=== PATIENT | male | born 1950 | race Caucasian/White ===

== ENCOUNTER → 2020-06-21 09:27 | Outpatient (CLI) | payer MEDICARE, BC, SELFPAY ==
--- NOTE | ~2020-06-21 | XR_ITS ---
XR abdomen/kub 1V 06/21/2020 09:59 Indication: Renal stones. Procedure: KUB Comparison: Comparison to multiple prior studies sequentially, with oldest reviewed study dated 02/2011 Findings: there are stones in the lower pole of the left kidney. Bowel content obscures the right kid sadia limiting evaluation for subtle stones. Bowel pattern nonobstructive. There are vascular calcifica tions in the pelvis. Mild-moderate lower thoracic and lumbar spondylosis.. Impression: 1: Left nephrolithiasis unchanged. Reviewed, dictated and finalized at location A. Impression: 1: Left nephrolithiasis unchanged.
== END ==
PROVIDERS: Visit Provider Nurse Practitioner Adult Health
DX: N20.0 Calculus of kidney (principal)
CPT/HCPCS: 74018

== ENCOUNTER 2020-11-18 16:52 | Emergency (ER) | payer MEDICARE, BC, SELFPAY ==
--- NOTE | ~2020-11-18 | XR_ITS ---
EXAMINATION: XR abdomen/kub 1V INDICATION: Left flank pain TECHNIQUE: Supine views of the abdomen were obtained on 2 radiographs. COMPARISON: 06/21/2020 FINDINGS: A 7 mm calcification projects near the left L4 transverse process in the expected location of the left mid ureter. Calcified atherosclerosis is noted. The bowel gas pattern is normal. There is moderate lumbar spondylosis. IMPRESSION: 1. 7 mm calcification projecting in the expected location of the left mid ureter. Reviewed, dictated and finalized at location A. J2EE APPLICATION DEVELOPER IMPRESSION: 1. 7 mm calcification projecting in the expected location of the left mid urete r.
--- NOTE | ~2020-11-18 | CT_ITS ---
EXAMINATION: CT abdomen pelvis wo con DATE: 11/18/2020 21:34 INDICATION: Left flank pain TECHNIQUE: Computed tomography (CT) of the abdomen and pelvis was performed without intravenous contr ast. The dose-length product (DLP) was 1588.17 mGy-cm. Automated exposure control and iterative recon struction technique were employed. COMPARISON: 10/25/2018 FINDINGS: Minimal dependent atelectasis is present in the lung bases. The heart size is normal. Stabl e nodules in the visualized lower lobes are consistent with old granulomatous disease. Calcified ingrid nary artery atherosclerosis is noted. The liver, spleen, pancreas, gallbladder, and adrenal glands ar e normal. There is a 6 mm stone of the left mid ureter which causes mild left hydronephrosis. There a re two nonobstructing stones of the left kidney which measure 3 mm and 1 mm. There are four nonobstru cting stones of the right kidney which measure up to 3 mm. No stones are identified in the right uret er or the bladder. There is calcified atherosclerosis of the aorta and many of the other arteries. No pathologically enlarged abdominal or pelvic lymph nodes are identified. There is no free intraperito sebastian gas or evidence of bowel obstruction. Healed left-sided rib fractures are noted. There is modera te lumbar spondylosis. IMPRESSION: 1. 6 mm stone of the left mid ureter causing mild left hydronephrosis. 2. Bilateral nonobstructing nephrolithiasis. Reviewed, dictated and finalized at location A. TRAPPER
[2020-11-18 18:25] VITALS: BP 132/68; PULSE 86; RESP 16; TEMP 36.1; O2SAT 98
[2020-11-18 18:41] LABS: Basophils Absolute Auto 0.1 K/mm3 (0.0-0.1); Basophils Percent Auto 0.6 % (0.2-1.2); Eosinophils Absolute Auto 0.2 K/mm3 (0-0.3); Eosinophils Percent Auto 1.5 % (0-4.4); Hematocrit 43.3 % (42.0-52.0); Hemoglobin 14.2 g/dL (14.0-18.0); Immature Granulocyte Absolute 0.04 K/mm3 (0.00-0.031); Immature Granulocyte Percent A 0.3 % (0-0.5); Lymphocytes Absolute Auto 1.78 K/mm3 (0.9-3.2); Lymphocytes Percent Auto 14.5 % (18.3-44.2); Mean Corpuscular HGB Conc 32.8 g/dl (32-36); Mean Corpuscular Hemoglobin 30.8 pg (26-34); Mean Corpuscular Volume 93.9 fl (80-100); Mean Platelet Volume 10.6 fl (7.4-10.4); Monocytes Absolute Auto 0.6 K/mm3 (0.1-0.6); Monocytes Percent Auto 4.8 % (2.6-8.5); Neutrophils Absolute Auto 9.6 K/mm3 (1.3-6.7); Neutrophils Percent Auto 78.3 % (45.5-73.1); Platelet Count Result 217 k/mm3 (150-375); Red Blood Count 4.61 M/mm3 (4.6-6.20); Red Cell Distribution Width 13.2 % (11.5-14.5); White Blood Count 12.3 K/mm3 (4.5-10.0)
[2020-11-18 18:54] LABS: Anion Gap 8 mmol/L (8-16); Blood Urea Nitrogen 15 mg/dL (9-20); Calcium 9.4 mg/dL (8.4-10.2); Carbon Dioxide 26 mmol/L (22-30); Chloride 103 mmol/L (98-107); Estimated CRCL calculation 70 ml/min; Estimated Glomerular Filt Rate 60; Glucose 131 mg/dL (75-110); Potassium 4.1 mmol/L (3.4-5.0); Sodium 137 mmol/L (137-145)
[2020-11-18 19:00] LABS: Add Urine Microscopic? YES; Appearance Urine Cloudy (Clear); Bilirubin Urine Negative (Negative); Blood Urine 3+ (Negative); Color Urine Yellow (Yellow); Glucose Urine UA Negative (Negative); Ketones Urine Negative (Negative); Leukocyte Esterase Ur Negative LEU/UL (Negative); Mucus Urine Moderate /lpf; Nitrate Urine Negative (Negative); Protein Urine 2+ mg/dL (Negative); RBC Urine >75 /hpf (0-2); Specific Grav Ur 1.031 (1.001-1.035); Squamous Epithelial Cell Urine Occasional /hpf (Few); Urobilinogen Urine Negative mg/dL (<2.0); WBC Urine 0-3 /hpf
[2020-11-18 20:23] VITALS: BP 128/77; PULSE 96; RESP 17; O2SAT 98
--- NOTE | 2020-11-18 20:28 | ED.MALEGU ---
HPI - Male Genitourinary General Chief complaint: Back Pain/Injury Stated complaint: L FLANK PAIN Time Seen by Provider: 11/18/20 20:15 Source: patient and family Mode of arrival: ambulatory Limitations: no limitations History of Present Illness HPI Narrative: 70-year-old male Past history of kidney stones and followed here by Dr. Ortega He was getting ready to eat a delicious roast for dinner this evening when he was suddenly seized by severe sharp pain in his left flank which was accompanied by nausea and vomiting x2 The pain rather quickly migrated from the back/flank area towards the groin and then resolved He reports currently being essentially pain-free This is not been his experience in the past with kidney stones as he is often had to have them removed He is not having a fever, he does not have gross hematuria although his urine did look dark, and reports no other symptoms Onset (ago): hour(s) Location: left flank Radiation: left inguinal region Severity: severe Quality: sharp Related Data Home Medications Medication Instructions Recorded Confirmed Ca shnm-H0-empd-hukgm-efkv-ini 600 tablet PO 11/19/20 Ozempic 0.5 mg SUBCUT WEEKLY 11/19/20 11/19/20 aspirin 81 mg PO DAILY 11/19/20 11/19/20 atorvastatin [Lipitor] 40 mg PO DAILY 11/19/20 11/19/20 clopidogrel [Plavix] 75 mg PO DAILY 11/19/20 11/19/20 coenzyme Y55-cxzermu E 100 cap PO 11/19/20 cyclobenzaprine 10 mg PO TID PRN 11/19/20 11/19/20 finasteride 5 mg PO DAILY 11/19/20 11/19/20 gabapentin 300 mg PO TID 11/19/20 11/19/20 metformin 500 mg PO BID 11/19/20 11/19/20 metoprolol succinate 50 mg PO DAILY 11/19/20 11/19/20 omega 7-rue-irf-fish oil [Fish Oil] 1 cap PO DAILY 11/19/20 11/19/20 pantoprazole 40 mg PO QAM 11/19/20 11/19/20 Allergies Allergy/AdvReac Type Severity Reaction Status Date / Time No Known Allergies Allergy Verified 11/19/20 13:43 Review of Systems Review of Systems: All systems reviewed & are unremarkable except as noted in HPI and below Constitutional: Constitutional: Denies chills, Denies fatigue, Denies fever(s), Denies headache(s) and Denies weakness Eyes: Eyes: Reports no additional eye complaints and Denies change in vision ENT: Denies headache(s), Denies epistaxis, Denies nasal congestion and Denies sore throat Cardiovascular: Cardiovascular: Denies chest pain, Denies leg edema, Denies palpitations and Denies dyspnea Respiratory: Respiratory: Denies cough, Denies dyspnea and Denies wheezing Gastrointestinal: Gastrointestinal: Reports abdominal pain, Denies diarrhea, Denies nausea and Denies vomiting Genitourinary: Genitourinary: Reports as per HPI, Denies hematuria, Denies dysuria and Denies urinary frequency Musculoskeletal: Musculoskeletal: Denies deformity, Denies arthralgias, Denies joint swelling, Denies muscle weakness and Denies numbness Integumentary/Breasts: Skin/Breast: Denies rash and Denies wounds Neurologic: Denies headache(s), Denies focal weakness, Denies numbness and Denies weakness Psychiatric: Psychiatric: Reports no additional psychiatric complaints Endocrine: Endocrine: Denies fatigue and Denies palpitations Hematologic/Lymphatic: Hematologic/Lymphatic: Denies easy bleeding and Denies easy bruising Allergic/Immunologic: Allergic/Immunologic: Denies wheezing PMFSH Past Medical History Medical History Back pain CAD (coronary artery disease) Chronic GERD Diabetes HTN (hypertension) Hx of myocardial infarction 2006 Hypercholesterolemia Morbid obesity with BMI of 40.0-44.9, adult CLIFF on CPAP Osteoarthritis Surgical History Surgical History History of coronary artery stent placement 2 stents, 2006 Social History Social History Smoking packs per day: 1.5 Smoking cigarettes per day: 30.0 Years smoked: 34 Smoking pack
--- NOTE | 2020-11-18 20:35 | PC.NURSE ---
Pt. to CT
[2020-11-18] MEDS: ONDANSETRON INJ 4 MG/2 ML VIAL IV PUSH (21:02)
[2020-11-18] MEDS: IBUPROFEN 400 MG TABLET 800 MG PO (21:02)
[2020-11-18] MEDS: TAMSULOSIN HCL 0.4 MG CAPSULE PO (21:03)
== END 2020-11-18 21:40 | disposition home or self-care (01) ==
PROVIDERS: Emergency Provider Emergency Medicine; Family Provider Urology
DX: N23 Unspecified renal colic (principal); Z87.442 Personal history of urinary calculi
CPT/HCPCS: 36415; 74018; 74176; 80048; 81001; 85025; 96374; 99284; A9270; J2405

== ENCOUNTER 2020-11-19 12:54 | Day surgery (SDC) | payer MEDICARE, BC, SELFPAY ==
--- NOTE | ~2020-11-19 | XR_ITS ---
EXAMINATION: XR stent kub - surgery INDICATION: Left ureteral stone TECHNIQUE: Six intraoperative fluoroscopic images are submitted for review. Total fluoroscopic time i s 23.0 seconds COMPARISON: CT from yesterday FINDINGS: Fluoroscopic images demonstrate mild left hydroureteronephrosis. A left internal ureteral s tent is placed in expected position. Please refer to procedure note for full details. IMPRESSION: 1. Left internal ureteral stent in expected position. Please refer to procedure note for full details . Reviewed, dictated and finalized at location A. TRIMMER IMPRESSION: 1. Left internal ureteral stent in expected position. Please refer to procedure note for full details.
[2020-11-19 11:05] VITALS: BMI 42.3
--- NOTE | 2020-11-19 13:50 | ECG_ITS ---
Measurements Intervals [place] Rate: 81 P: 35 NE: 166 QRS: -11 QRSD: 95 T: 14 QT: 371 QTc: 433 Interpretive Statements SINUS RHYTHM EARLY PRECORDIAL R/S TRANSITION BORDERLINE T WAVE ABNORMALITY- INFERIOR LEADS BASELINE WANDER- I, III BORDERLINE ECG Electronically Signed On 11-19-2020 14:44:58 NUCLEAR PHARMACIST by Tom Oseguera D.O.
[2020-11-19 14:17] LABS: Glucose Point of Care 100 (65-105)
--- NOTE | 2020-11-19 14:30 | WPDANESEPPF ---
Anes - Initial Pre Proc Eval Procedure: Operation Date: 11/19/20 15:00 Proposed Procedures p Cystoscopy, Left Stent Placement - Severo Ortega MD Date/Time: 11/19/20 14:30 Surgeon: Severo Ortega MD Pre Op Diagnosis: Ureteral Stone, Left Hydronephrosis Patient Data Age: 70 Gender: M Height: 1.75 m Weight: 129.4 kg Allergies Allergy/AdvReac Type Severity Reaction Status Date / Time No Known Allergies Allergy Verified 11/19/20 13:43 Home Medications Medication Instructions Recorded Confirmed Type tamsulosin [Flomax] 0.4 mg PO DAILY #10 cap 11/18/20 11/19/20 Rx Ca ffws-X6-cwbc-rjijx-cwki-owu 600 tablet PO 11/19/20 History [Spsragj-L0-Qablpnof-Chondroit] aspirin [Adult Low Dose Aspirin] 81 mg PO DAILY 11/19/20 11/19/20 History atorvastatin [Lipitor] 40 mg PO DAILY 11/19/20 11/19/20 History clopidogrel [Plavix] 75 mg PO DAILY 11/19/20 11/19/20 History coenzyme S93-rbzpwyh E [CoQ10 SG 100 cap PO 11/19/20 History 100] cyclobenzaprine [Flexeril] 10 mg PO TID PRN 11/19/20 11/19/20 History finasteride 5 mg PO DAILY 11/19/20 11/19/20 History gabapentin 300 mg PO TID 11/19/20 11/19/20 History metformin 500 mg PO BID 11/19/20 11/19/20 History metoprolol succinate 50 mg PO DAILY 11/19/20 11/19/20 History omega 9-cwm-hwz-fish oil [Fish Oil] 1 cap PO DAILY 11/19/20 11/19/20 History pantoprazole 40 mg PO QAM 11/19/20 11/19/20 History semaglutide [Ozempic] 0.5 mg SUBCUT WEEKLY 11/19/20 11/19/20 History Laboratory Tests 11/19/20 14:14 POC Capillary Glucose 100 mg/dl mg/dl (65-105) Patient hx anesthesia problems: none Family hx anesthesia problems: none PMFSH Past Medical History Medical History (Updated 11/19/20 @ 14:33 by Serg Gaspar MD) Back pain CAD (coronary artery disease) Chronic GERD Diabetes HTN (hypertension) Hx of myocardial infarction 2006 Hypercholesterolemia Morbid obesity with BMI of 40.0-44.9, adult CLIFF on CPAP Osteoarthritis Surgical History Surgical History (Updated 11/19/20 @ 14:33 by Serg Gaspar MD) History of coronary artery stent placement 2 stents, 2006 Social History Social History Smoking packs per day: 1.5 Smoking cigarettes per day: 30.0 Years smoked: 34 Smoking pack-years: 51.00 Smoking status: Former smoker Tobacco type: cigarettes Second hand tobacco smoke exposure: No Smoking end date: 10/29/06 Alcohol intake: current Alcohol use details: STATES VERY RARE, FEW BEERS IN THE SUMMERTIME SOCIALLY Substance use: never Substance use type: does not use Living arrangements: with family Spiritual care concerns: No Anes - Eval Final PreProcedure Day of Procedure 11/19/20 14:30 Patient weight: morbidly obese Heart: regular rate and rhythm Lungs: clear to auscultation and normal air movement Airway: Mallampati scale class II Neurological: alert and oriented Last oral intake: >/= 8 hours ASA classification: III Emergent: no Anesthetic plan: proceed Anesthesia type and monitoring: general LMA and ETT Informed Consent: The patient's anesthetic plan and its attendant risks and benefits were discussed with the patient/family/POA. Questions were solicited and answers provided to the satisfaction of the patient/family/POA.
[2020-11-19 14:44] VITALS: BP 118/72; PULSE 92; RESP 18; TEMP 36.8; O2SAT 94
[2020-11-19] MEDS: LACTATED RINGERS 1,000 ML 30 ML IV CONT (14:44)
--- NOTE | 2020-11-19 15:24 | PM.HPGS ---
History of Present Illness History of Present Illness Consent: Risks, benefits, and alternatives have been discussed and questions answered. Patient agrees to proceed with procedure. Chief complaint: Ureteral Stone, Left Hydronephrosis Narrative: Maykel Luke is a 70 year old male with a history of urolithiasis, in ER last night with a 7mm left proximal ureteral stone. He presents today for left ureteral stent placement with ESWL [id number]. Review of Systems Cardiovascular: Cardiovascular: Denies chest pain, Denies lightheadedness, Denies palpitations and Denies dyspnea Respiratory: Respiratory: Denies dyspnea Gastrointestinal: Gastrointestinal: Denies diarrhea, Denies nausea and Denies vomiting Genitourinary: Genitourinary: Denies hematuria and Denies dysuria Endocrine: Endocrine: Denies palpitations PMFSH Past Medical History Medical History Back pain CAD (coronary artery disease) Chronic GERD Diabetes HTN (hypertension) Hx of myocardial infarction 2006 Hypercholesterolemia Morbid obesity with BMI of 40.0-44.9, adult CLIFF on CPAP Osteoarthritis Surgical History Surgical History History of coronary artery stent placement 2 stents, 2006 Social History Social History Smoking packs per day: 1.5 Smoking cigarettes per day: 30.0 Years smoked: 34 Smoking pack-years: 51.00 Smoking status: Former smoker Tobacco type: cigarettes Second hand tobacco smoke exposure: No Smoking end date: 10/29/06 Alcohol intake: current Alcohol use details: STATES VERY RARE, FEW BEERS IN THE SUMMERTIME SOCIALLY Substance use: never Substance use type: does not use Living arrangements: with family Spiritual care concerns: No Meds Home Medications and Allergies Home Medications Medication Instructions Recorded Confirmed Type tamsulosin [Flomax] 0.4 mg PO DAILY #10 cap 11/18/20 11/19/20 Rx Ca ablc-Q3-douc-ikmsk-ahws-fuy 600 tablet PO 11/19/20 History [Xgomkac-M9-Ybelevcz-Chondroit] aspirin [Adult Low Dose Aspirin] 81 mg PO DAILY 11/19/20 11/19/20 History atorvastatin [Lipitor] 40 mg PO DAILY 11/19/20 11/19/20 History clopidogrel [Plavix] 75 mg PO DAILY 11/19/20 11/19/20 History coenzyme B69-etctzko E [CoQ10 SG 100 cap PO 11/19/20 History 100] cyclobenzaprine [Flexeril] 10 mg PO TID PRN 11/19/20 11/19/20 History finasteride 5 mg PO DAILY 11/19/20 11/19/20 History gabapentin 300 mg PO TID 11/19/20 11/19/20 History metformin 500 mg PO BID 11/19/20 11/19/20 History metoprolol succinate 50 mg PO DAILY 11/19/20 11/19/20 History omega 0-zcs-gea-fish oil [Fish Oil] 1 cap PO DAILY 11/19/20 11/19/20 History pantoprazole 40 mg PO QAM 11/19/20 11/19/20 History semaglutide [Ozempic] 0.5 mg SUBCUT WEEKLY 11/19/20 11/19/20 History Allergies Allergy/AdvReac Type Severity Reaction Status Date / Time No Known Allergies Allergy Verified 11/19/20 13:43 Vital Signs Vital Signs - 24 hr 11/19/20 14:44 Temperature 98.2 F Pulse Rate 92 Respiratory Rate 18 Blood Pressure 118/72 Pulse Oximetry 94 Exam Const: General: no acute distress Resp: Effort & Inspection: normal respiratory effort GI: Inspection: non-distended GI Palp: No abdominal tenderness and No Guarding due to palpation present (GI) Auscultation: normal bowel sounds Assessment and Plan Assessment and plan (1) Left ureteral stone: Code(s): N20.1 - Calculus of ureter Status: Acute Assessment and Plan: Cystoscopy with left ureteral stent placement
--- NOTE | 2020-11-19 15:27 | WPDHPUPDATE1 ---
History and Physical Update Update Date/Time: 11/19/20 15:27 History and Physical has been reviewed, including an updated exam of the patient. There are NO changes in the patient's condition. Risks, benefits, and alternatives have been discussed and questions answered. Patient agrees to proceed with procedure.
--- NOTE | 2020-11-19 15:32 | SUR.PREOP ---
up to bathroom. discussed continued delay.
[2020-11-19] MEDS: ceFAZolin 3 GM/D5W 100 ML 100 ML IVPB (15:50)
--- NOTE | 2020-11-19 16:10 | PM.PROC ---
Procedure Note - Detailed Date of procedure: 11/19/20 Pre-op diagnosis: Ureteral Stone, Left Hydronephrosis Post-op diagnosis: same Procedure performed: 1. Cystoscopy, left retrograde pyelography 2. Left ureteral stent placement Description of procedure: The patient was brought to the operative suite where he was prepped and draped in a routine sterile fashion while in the dorsal lithotomy position. A 19 F rigid cystoscope was placed in her bladder and the bladder was circumferentially inspected. There were no urethral strictures. The prostatic urethral estimated length was 2.0cm. There was mild obstruction of the prostatic urethra with no median lobe. The bladder mucosa was without hyperemia. There was no intravesical foreign body or neoplasm. There was a single orthotopic ureteral orifice bilaterally. I advanced .035 glidewire into the renal pelvis under fluoroscopy and performed a retrograde pyelogram to insure proper placement of the ureteral stent. A 4.8F variable length ureteral stent was positioned with the proximal coil in the renal pelvis and the distal coil in the bladder. Scopes and wires were removed after emptying the patient's bladder. Anesthesia: MAC Surgeon: Severo Ortega MD Estimated blood loss (mL): 0 Drains: Yes (4.8F left ureteral stent) Packing: No Pathology: none sent Complications: No immediate complications Condition: stable Disposition: PACU
[2020-11-19 16:11] VITALS: BP 117/78; PULSE 75; RESP 12; O2SAT 89
[2020-11-19 16:21] LABS: Glucose Point of Care 101 (65-105)
--- NOTE | 2020-11-19 16:24 | SUR.OPER ---
left ureteral stent Contour VL 4.8Fr Exp 2023-09-09, Lot [id number]
[2020-11-19 16:40] VITALS: BP 116/79; PULSE 75; RESP 16; O2SAT 93
[2020-11-19 17:10] VITALS: BP 137/84; PULSE 90; RESP 16
== END 2020-11-19 17:15 | disposition home or self-care (01) ==
PROVIDERS: Family Provider Urology; Visit Provider Urology
PROC: (CPT 52352; principal; 2020-11-19 15:00)
DX: N13.2 Hydronephrosis with renal and ureteral calculous obstruction (principal); I10 Essential (primary) hypertension; I25.10 Atherosclerotic heart disease of native coronary artery without angina pectoris; I25.2 Old myocardial infarction; E11.9 Type 2 diabetes mellitus without complications; G47.33 Obstructive sleep apnea (adult) (pediatric); K21.9 Gastro-esophageal reflux disease without esophagitis; E66.01 Morbid (severe) obesity due to excess calories; Z68.41 Body mass index [BMI] 40.0-44.9, adult; Z87.891 Personal history of nicotine dependence; Z95.5 Presence of coronary angioplasty implant and graft; Z79.02 Long term (current) use of antithrombotics/antiplatelets; Z79.82 Long term (current) use of aspirin; Z79.84 Long term (current) use of oral hypoglycemic drugs
CPT/HCPCS: 52332; 93005; A9270; C1769; C1887; C2617; J0690; J2704; J7120; Q9966

== ENCOUNTER 2020-11-24 00:58 | Outpatient (CLI) | payer MEDICARE, BC, SELFPAY ==
[2020-11-24 17:33] LABS: SARS-CoV-2 RNA PCR Negative
== END 2020-11-24 00:59 | disposition home or self-care (01) ==
LOC: ANHCOVIDDT 01:00
PROVIDERS: Family Provider Urology; Visit Provider Urology
DX: Z01.812 Encounter for preprocedural laboratory examination (principal); Z20.822 Contact with and (suspected) exposure to COVID-19
CPT/HCPCS: C9803; U0003; U0005

== ENCOUNTER 2020-11-24 07:33 | Outpatient (CLI) | payer MEDICARE, BC, SELFPAY ==
[2020-11-24 08:05] LABS: INR 0.9
[2020-11-24 08:06] LABS: Partial Thromboplastin Time 31.5 SECONDS (22.3-36.8)
== END 2020-11-24 07:34 | disposition home or self-care (01) ==
LOC: ANHSURGERY 07:36
PROVIDERS: Family Provider Urology; Visit Provider Urology
DX: N20.1 Calculus of ureter (principal); Z51.81 Encounter for therapeutic drug level monitoring; Z79.899 Other long term (current) drug therapy
CPT/HCPCS: 36415; 85610; 85730; 87086; C9803; U0003; U0005

== ENCOUNTER 2020-11-26 01:51 | Day surgery (SDC) | payer MEDICARE, BC, SELFPAY ==
[2020-11-23 15:04] VITALS: BMI 41.6
--- NOTE | 2020-11-25 14:50 | WPDANESEPPF ---
Anes - Initial Pre Proc Eval Procedure: Operation Date: 11/26/20 14:00 Proposed Procedures p Left Ureteral Extracorporeal Shock Wave Lithotripsy, - Severo Ortega MD s Cystoscopy, With Left Stent Removal - Severo Ortega MD Date/Time: 11/25/20 14:50 Surgeon: Severo Ortega MD Pre Op Diagnosis: Ureteral Stone Patient Data Age: 70 Gender: M Height: 1.75 m Weight: 128 kg Allergies Allergy/AdvReac Type Severity Reaction Status Date / Time No Known Allergies Allergy Verified 11/23/20 14:54 Home Medications Medication Instructions Recorded Confirmed Type tamsulosin [Flomax] 0.4 mg PO DAILY #10 cap 11/18/20 11/23/20 Rx Ozempic 0.5 mg SUBCUT WEEKLY 11/19/20 11/23/20 History aspirin 81 mg PO DAILY 11/19/20 11/23/20 History atorvastatin [Lipitor] 40 mg PO DAILY 11/19/20 11/23/20 History clopidogrel [Plavix] 75 mg PO DAILY 11/19/20 11/23/20 History coenzyme I22-qffbwue E 100 cap PO DAILY 11/19/20 11/23/20 History cyclobenzaprine 10 mg PO TID PRN 11/19/20 11/23/20 History finasteride 5 mg PO DAILY 11/19/20 11/23/20 History gabapentin 300 mg PO TID 11/19/20 11/23/20 History hydrocodone-acetaminophen 1 - 2 tablet PO Q6H PRN #30 tablet 11/19/20 11/23/20 Rx metformin 500 mg PO BID 11/19/20 11/23/20 History metoprolol succinate 50 mg PO QAM 11/19/20 11/23/20 History omega 0-cpw-sed-fish oil [Fish Oil] 1 cap PO DAILY 11/19/20 11/23/20 History pantoprazole 40 mg PO QAM 11/19/20 11/23/20 History calcium carbonate [Caltrate 600] 600 mg PO DAILY 11/23/20 11/23/20 History sulfamethoxazole-trimethoprim 1 tablet PO BID 11/23/20 11/23/20 History Patient hx anesthesia problems: none Family hx anesthesia problems: none PMFSH Past Medical History Medical History Back pain CAD (coronary artery disease) Chronic GERD Diabetes HTN (hypertension) Hx of myocardial infarction 2007 Hypercholesterolemia Morbid obesity with BMI of 40.0-44.9, adult CLIFF on CPAP Osteoarthritis Surgical History Surgical History History of coronary artery stent placement 2 stents, 2006 Social History Social History Smoking packs per day: 1.5 Smoking cigarettes per day: 30.0 Years smoked: 34 Smoking pack-years: 51.00 Smoking status: Former smoker Tobacco type: cigarettes Second hand tobacco smoke exposure: No Smoking end date: 04/28/07 Alcohol intake: current Alcohol use details: 4 DRINKS/MONTH Substance use: never Substance use type: does not use Living arrangements: with family Additional living arrangements comments: Spiritual care concerns: No Anes - Eval Final PreProcedure Day of Procedure 11/25/20 14:50 Patient weight: obese Heart: regular rate and rhythm Lungs: clear to auscultation and normal air movement Airway: Mallampati scale class II Neurological: alert and oriented Last oral intake: >/= 8 hours ASA classification: III Emergent: no Anesthetic plan: proceed Anesthesia type and monitoring: general LMA and ETT Informed Consent: The patient's anesthetic plan and its attendant risks and benefits were discussed with the patient/family/POA. Questions were solicited and answers provided to the satisfaction of the patient/family/POA.
[2020-11-26] VITALS (7 sets, daily range): BP systolic 109–123; BP diastolic 60–82; PULSE 71–87; RESP 12–20; TEMP 36.3–37.2; O2SAT 93–100
--- NOTE | ~2020-11-26 | CT_ITS ---
EXAMINATION: CT abdomen pelvis wo con DATE: 11/26/2020 12:35 INDICATION: Evaluate stone placement. TECHNIQUE: Computed tomography (CT) of the abdomen and pelvis was performed without intravenous contr ast. Automated exposure control and iterative reconstruction technique were employed. The dose-length product was 861.84 mGy-cm. COMPARISON: CT dated 11/18/2020 and 10/25/2018 and KUB dated 11/26/2020 FINDINGS: Chronic calcified and 6 mm noncalcified granulomata at the left lower lobe. Heart size is normal. Ath erosclerotic coronary artery calcification. Calcified left hilar and mediastinal lymph nodes consiste nt with old granulomatous disease. Liver, gallbladder, spleen, pancreas and bilateral adrenal glands are normal. Surgical clip at the tip of the appendix. There is mild colonic diverticulosis with a sig moid predominance. There is no adjacent inflammatory change to suggest diverticulitis. No bowel obs truction. No free intraperitoneal gas or fluid. No pathologically enlarged abdominal or pelvic lympha denopathy. There is calcified atherosclerosis of the aorta and many of the other arteries. Moderate t o severe lumbar and lower thoracic spondylosis. 3 nonobstructing stones in the right kidney measuring up to 3 mm. There are couple nonobstructing sto lew measuring up to 2 mm in the left kidney. Left internal ureteral stent with loops formed in the le ft renal pelvis and in the bladder. 4 x 3 mm stone or stone fragment along side the renal stent which projects over the left side of the L5-S1 disc space which results in essentially indiscernible on th e prior radiographs. No other ureteral stones on either the left or right. No hydronephrosis. IMPRESSION: 1. Bilateral nephrolithiasis including a 4 x 3 mm stone/stone fragment at the mid left ureter along s chhaya a left internal ureteral stent. This stone is essentially indiscernible on the prior radiographs as it projects over the left side of L5-S1 where there is increased bone density related to severe sp ondylosis at this level. Reviewed, dictated and finalized at location B. SECRETARY IMPRESSION: 1. Bilateral nephrolithiasis including a 4 x 3 mm stone/stone fragment at the m id left ureter along side a left internal ureteral stent. This stone is essenti ally indiscernible on the prior radiographs as it projects over the left side o f L5-S1 where there is increased bone density related to severe spondylosis at this level.
--- NOTE | ~2020-11-26 | XR_ITS ---
EXAMINATION: XR abdomen/kub 1V DATE: 11/26/2020 11:29 INDICATION: Lithotripsy TECHNIQUE: A supine view of the abdomen on 2 radiographs was obtained. COMPARISON: KUB and CT dated 11/18/2020 FINDINGS: Left internal ureteral stent with loops formed over the expected location of the left renal pelvis an d bladder. A few curvilinear atherosclerotic calcific a cyst project over the pelvis. No evident ston e or stone fragments at the left kidney or along the course of the left ureteral stent. Tiny surgical clip in the right lower quadrant. Normal bowel gas pattern. Moderate lower lumbar spondylosis. IMPRESSION: 1. Left internal ureteral stent in expected position with no evident left-sided stone or stone fragme nts . Reviewed, dictated and finalized at location [facility]. YTICAL STATISTICIAN IMPRESSION: 1. Left internal ureteral stent in expected position with no evident left-sided stone or stone fragments .
--- NOTE | 2020-11-26 08:46 | WPDHPUPDATE1 ---
History and Physical Update Update Date/Time: 11/26/20 08:46 History and Physical has been reviewed, including an updated exam of the patient. There are NO changes in the patient's condition. Risks, benefits, and alternatives have been discussed and questions answered. Patient agrees to proceed with procedure.
--- NOTE | 2020-11-26 12:29 | SUR.PREOP ---
pt taken to radiology for ct abdomen and pelvis without contrast.
[2020-11-26] MEDS: LACTATED RINGERS 1,000 ML 30 ML IV CONT ×2 (12:57→14:07)
[2020-11-26 13:03] LABS: Glucose Point of Care 93 (65-105)
[2020-11-26] MEDS: ceFAZolin 3 GM/D5W 100 ML 100 ML IVPB (13:11)
[2020-11-26] MEDS: LIDOCAINE HCL 2% GEL UROJET 10 ML PKG MUCOUS MEM (13:22)
--- NOTE | 2020-11-26 13:30 | PM.PROC ---
Procedure Note - Detailed Date of procedure: 11/26/20 Pre-op diagnosis: Left ureteral Stone Post-op diagnosis: same Procedure performed: 1. Cysto., left ureteral stent removal 2. Left ESWL Description of procedure: The patient was brought to the operative suite where he was placed in the supine position on the Dornier lithotripter table. Flexible cystoscopy was undertaken with a 16F flexible cystoscopy. There were no urethral strictures. The prostatic urethra estimated length was 1.5cm. There was minimal obstruction of the prostatic urethra with no median lobe enlargement. The bladder mucosa was normal and there was a single, orthotopic ureteral orifice bilaterally. The tip of the indwelling stent was grasped and it was removed with ease. The patient was then repositioned in the supine position with the focal point of the lithotriptor on a 6-7mm left mid-ureteral calculus. A total of 2500 shocks were delivered at a power setting of 4. There appeared to be good fragmentation of the stone. The patient tolerated the procedure well and was taken to the recovery room in good condition. Anesthesia: GLMA Surgeon: Severo Ortega MD Prekindergarten Teacher: 0 Drains: No Packing: No Pathology: none sent Complications: No immediate complications Condition: stable Disposition: PACU
[2020-11-26 14:13] LABS: Glucose Point of Care 95 (65-105)
== END 2020-11-26 15:36 | disposition home or self-care (01) ==
PROVIDERS: Family Provider Urology; Visit Provider Urology
PROC: (CPT 50590; principal; 2020-11-26 14:00)
PROC: (CPT 52352; 2020-11-26 14:00)
DX: N20.1 Calculus of ureter (principal); Z79.82 Long term (current) use of aspirin; Z79.84 Long term (current) use of oral hypoglycemic drugs; I25.10 Atherosclerotic heart disease of native coronary artery without angina pectoris; K21.9 Gastro-esophageal reflux disease without esophagitis; I10 Essential (primary) hypertension; E78.00 Pure hypercholesterolemia, unspecified; G47.33 Obstructive sleep apnea (adult) (pediatric); M19.90 Unspecified osteoarthritis, unspecified site; Z87.891 Personal history of nicotine dependence; E66.9 Obesity, unspecified; Z68.41 Body mass index [BMI] 40.0-44.9, adult
CPT/HCPCS: 50590; 52310; 74018; 74176; 82948; A9270; C1769; J0690; J1100; J2405; J2704; J7120

== ENCOUNTER → 2020-12-16 13:29 | Outpatient (CLI) | payer MEDICARE, BC, SELFPAY ==
--- NOTE | ~2020-12-16 | XR_ITS ---
XR abdomen/kub 1V DATE: 12/16/2020 14:04 INDICATION: Bilateral kidney stones TECHNIQUE: AP projection, 2 views COMPARISON: 11/26/[address] abdomen pelvis 11/26/2020 K[facility] FINDINGS: No obvious urinary tract calcifications are detected radiographically. Removal of internal urinary stent since 11/26/2020 Social is intact. No visceromegaly is evident. The bowel gas pattern is unremarkable, without evidenc e of obstruction. IMPRESSION: Nonspecific abdomen Removal of left internal urinary stent Reviewed, dictated and finalized at [facility]. Reviewed, dictated and finalized at location [facility]. DRI[employer]ER
== END ==
PROVIDERS: Visit Provider Nurse Practitioner Adult Health
DX: N20.0 Calculus of kidney (principal)
CPT/HCPCS: 74018

== ENCOUNTER → 2021-06-20 11:06 | Outpatient (CLI) | payer MEDICARE, BC, SELFPAY ==
--- NOTE | ~2021-06-20 | XR_ITS ---
EXAMINATION: XR abdomen/kub 1V INDICATION: Bilateral kidney stones TECHNIQUE: Supine views of the abdomen were obtained on 2 radiographs. COMPARISON: 12/16/2020 FINDINGS: No urolithiasis is identified. Calcified atherosclerosis is noted. The bowel gas pattern is normal. There is mild osteoarthritis of the hips. IMPRESSION: 1. No urolithiasis identified. Reviewed, dictated and finalized at location [facility].
== END ==
PROVIDERS: Visit Provider Urology
DX: N20.0 Calculus of kidney (principal)
CPT/HCPCS: 74018

== ENCOUNTER → 2023-06-29 09:34 | Outpatient (CLI) | payer MEDICARE, BC, SELFPAY ==
--- NOTE | ~2023-06-29 | XR_ITS ---
Supine and upright views of the abdomen Clinical history: Kidney stones COMPARISON: 06/20/2021 Findings: Bowel gas pattern is nonspecific. No evidence for obstruction or free air. There are small bilateral renal stones probably present, measuring up to approximately 3-4 mm. Osseous structures are intact. Impression: Small probable bilateral renal stones, as noted above. Reviewed, dictated and finalized at [facility]. Impression: Small probable bilateral renal stones, as noted above.
== END ==
PROVIDERS: Visit Provider Urology
DX: N20.0 Calculus of kidney (principal)
CPT/HCPCS: 74018

== ENCOUNTER 2024-07-22 11:04 | Outpatient (CLI) | payer MEDICARE, BC, SELFPAY ==
--- NOTE | ~2024-07-22 | XR_ITS ---
XR abdomen/kub 1V Ordering provider: Severo Ortega MD History: . Bilat kidney stones . Comparison: None. FINDINGS: BOWEL: Nonobstructive bowel gas pattern. ORGANOMEGALY: None. SIGNIFICANT PATHOLOGIC CALCIFICATIONS: No definite stones seen. If still suspicious noncontrast CT is advised. OTHER: No free air is seen under the diaphragm. IMPRESSION: NO ACUTE ABDOMINAL FINDINGS. Reviewed, dictated and finalized at location A.
== END 2024-07-22 11:05 | disposition home or self-care (01) ==
LOC: MICIMG 11:10
PROVIDERS: Visit Provider Urology
DX: N20.0 Calculus of kidney (principal)
CPT/HCPCS: 74018